=== PATIENT | male | born 1970 | race Caucasian/White ===

== ENCOUNTER 2024-04-16 14:12 | Emergency (ER) | payer BC, SELFPAY ==
[2024-04-16] VITALS (8 sets, daily range): BP systolic 119–142; BP diastolic 62–86; PULSE 70–76; BMI 32.9
[2024-04-16 14:42] LABS: % Basophils 0.5 % (0-2); % Immature Granulocytes 0.6 % (0-0.5); % Lymphocytes 14.4 % (20.5-51.1); % Monocytes 5.2 % (1.7-9.3); % Neutrophils 78.3 % (42.2-75.2); Absolute Eosinophils 0.1 10^3/uL (0-0.7); Absolute Immature Granulocytes 0.1 10^3/uL (0-0.05); Absolute Lymphocytes 1.2 10^3/uL (1.2-3.4); Absolute Monocytes 0.4 10^3/uL (0.1-0.6); Absolute Neutrophils 6.5 10^3/uL (1.4-6.5); Hemoglobin 13.8 g/dL (13.0-18.0); Mean Corp Hgb Conc. 34.5 g/dL (33.0-37.0); Mean Corpuscular Hgb 30.3 pg (27.0-31.0); Mean Corpuscular Volume 87.7 fL (80.0-94.0); Mean Platelet Volume 9.7 fL (7.4-10.4); Nucleated Red Blood Cells % 0 % (-); Platelet Count 148 10^3/uL (130-400); Red Blood Cell Count 4.56 10^6/uL (4.70-6.10); White Blood Cell Count 8.3 10^3/uL (4.8-10.8)
[2024-04-16 14:55] LABS: ALT (SGPT) 19 U/L (0-50); AST (SGOT) 22 U/L (17-59); Albumin 4.1 g/dl (3.5-5.0); Alkaline Phosphatase 60 U/L (38-126); Blood Urea Nitrogen 21 mg/dl (9-20); Calcium 8.8 mg/dl (8.4-10.2); Carbon Dioxide 25 mmol/L (22-30); Chloride 102 mmol/L (98-107); Glucose 170 mg/dl (70-99); Potassium 4.5 mmol/L (3.5-5.1); Sodium 134 mmol/L (135-145); Total Bilirubin 0.4 mg/dl (0.2-1.3); Total Protein 6.2 g/dl (6.3-8.2); eGFR > 60.00
[2024-04-16 15:07] LABS: Troponin I < 0.012 ng/ml
--- NOTE | 2024-04-16 16:51 | EDRN ---
Pt states he came in because he became very dizzy and shaking and sweaty (also pale) while helping his daughter in her home. BP was very high when checked at that time. Pt states dickson 4 hours ago and it lasted 1 hour. Pt states has never had anything
like that before. Now pt states he was dizzy in waiting area and still just not 'feeling right.' Pt just recovered Influenza A about a week ago.
--- NOTE | 2024-04-16 17:05 | EDRN ---
During orthostatic VS pt only had dizziness on lying flat, no symptoms on sitting or standing.
--- NOTE | 2024-04-16 17:32 | EDRN ---
Pt just returned from [facility] to stretcher at this time.
--- NOTE | 2024-04-16 17:50 | EDRN ---
Dr. Nogueira in to see pt at this time.
--- NOTE | 2024-04-16 18:10 | ED.GENMED ---
History of Present Illness
General
Chief Complaint: Dizziness
Time Seen by Provider: 04/16/24 17:15
History of Present Illness
History of Present Illness:
54-year-old male without significant past medical history presenting to the emergency department for an episode of dizziness. Patient reports that he was working on his daughter's house this afternoon around noon. He was going up and down the
ladder and underneath the crawlspace. He suddenly became very dizzy and lightheaded and felt like he was going to pass out. Notes his dizziness was described as room spinning. Symptoms lasted about an hour. He still does not feel himself,
however symptoms have overall improved. Denies associated chest pain or difficulty breathing. Denies ever having the symptoms in the past. Does note that he did not drink any water this morning and drank a double espresso followed by coffee.
Denies abdominal pain or GI symptoms. Denies focal weakness or sensory deficits to his extremities. Denies additional acute medical complaints
Past History
Past History
ED Past Medical History: None
ED Past Surgical History: None
Social History
Tobacco: Non-smoker
Alcohol: Occasional
Drug: None
Personal:
Living: with family
Employment: Employed
Phy Exam
Physical Exam
Physical Exam:
General: Well-appearing, no clinical signs of dehydration, nontoxic and in no acute distress
HEENT: protecting airway, pupils equal and reactive, extraocular movements intact
Neck: appears supple
CV: Normal heart rate, regular rhythm, no evidence of cyanosis
Resp: No accessory muscle use, no increased work of breathing, lungs clear to auscultation bilaterally
Abd: Soft and non-distended, no tenderness to palpation
Extremities: No deformities, no swelling, no erythema, pulses and sensation intact
Neuro: alert, no focal neurologic deficit
: deferred
Rectal: deferred
Psych: Normal affect
Skin: Intact
Course
Orders/Labs/Results
Orders:
Orders
04/16/24 14:12
Electrocardiogram (*1) Urgent
Reason for Study: Vertigo / Dizzy
EKG- Treatment ONCE
04/16/24 14:30
Complete Blood Count/With Diff Urgent
Comprehensive Metabolic Panel Urgent
Troponin I Urgent
04/16/24 17:51
0.9% Sodium Chloride 1000 ml [Nss] 1,000 ml IV BOLUS
04/16/24 17:52
CT Head W/o Iv Contrast Urgent
Comment:
Reason For Exam: dizziness
Abnormal Lab Results
04/16/24
14:30
RBC 4.56 L 10^6/uL
(4.70-6.10)
Abs Immat Gran (auto) 0.1 H 10^3/uL
(0-0.05)
Immature Gran % 0.6 H %
(0-0.5)
Neutrophils % 78.3 H %
(42.2-75.2)
Lymphocytes % 14.4 L %
(20.5-51.1)
Sodium 134 L mmol/L
(135-145)
BUN 21 H mg/dl
(9-20)
Glucose 170 H mg/dl
(70-99)
Total Protein 6.2 L g/dl
(6.3-8.2)
04/16/24 14:30
04/16/24 14:30
Vital Signs
Initial and Last Documented VS:
Initial Vital Signs
Temp Pulse Resp BP Pulse Ox
98.1 F 69 18 142/86 100
04/16/24 14:19 04/16/24 14:19 04/16/24 14:19 04/16/24 14:19 04/16/24 14:19
Last Documented Vital Signs
Temp Pulse Resp BP Pulse Ox
98.4 F 77 18 123/66 98
04/16/24 19:24 04/16/24 19:24 04/16/24 19:24 04/16/24 19:24 04/16/24 19:24
MDM/Problems Addressed
MDM/Problems Addressed:
54-year-old male presenting to the emergency department with episode of dizziness and lightheadedness. Vital signs on arrival are normal.
On exam patient is resting comfortably, no acute distress or discomfort. Benign cardiac and pulmonary exam. No focal neurologic deficits on exam. Symptom presentation appears most consistent with likely vasovagal quality of symptoms. Patient
notes that he did not drink very much water this morning, had a lot of caffeine and was frequently changing positions, doing manual labor. Suspect component of volume depletion. EKG obtained on arrival, nonischemic, no sign of arrhythmia. Patient
again without focal neurologic deficits without strong suspicion for any central neurologic process. Given duration of symptoms, will screen with CT brain imaging. Orthostatics obtained, within normal limits. Vertiginous component is also a
consideration, notes that it is worse when he is laying down. Screening laboratory analysis obtained, normal electrolyte panel and blood counts. For therapeutics will administer IV fluids and reassess.
20:00 - On reassessment patient remains stable. CT brain is negative. Continue to suspect vasovagal episode. Notes improvement after IV fluids. Feel stable for discharge with continued outpatient follow-up and supportive therapy. Advised
appropriate hydration. Return precautions discussed and patient verbalized understanding
*EKG
Interpreted by ED Provider?: Yes
EKG Intrepretation Date: 04/16/24
EKG Intrepretation Time: 18:12
Interpretation: normal
Comparison EKG: no comparison EKG present
Heart Rate: 63
Rate: normal
Rhythm: sinus
[place]: normal axis
Interval: normal interval
QRS Pattern: normal QRS
Ischemia: no ischemia
*Critical Care Note
Total Time (30-74mins, 75-104mins- exclusive of procedures): Not Applicable
ED Attending Note
-
Portions of this chart may have been created with voice recognition software.� Occasional wrong word or��sound alike� substitutions may have occurred due to the inherent limitations of voice recognition software.
Discharge Plan
Departure
Referrals:
Bob Hedrick DO [Family Provider] -
Interventions
Interventions:
*Risk Screen - Suicide Last Done: 04/16/24 14:19
*General Assessment Last Done: 04/16/24 14:19
*Neglect/Abuse Screening Last Done: 04/16/24 14:19
ED- Fall Risk Assessment Last Done: 04/16/24 17:00
*ED COVID-19 Vaccine History Last Done: 04/16/24 16:56
ED- Neurological Assessment Last Done: 04/16/24 19:15
ED- Cardiac Assessment Last Done: 04/16/24 19:15
ED Swallowing Screen Last Done: 04/16/24 17:10
Discharge Date and Time
Print Language: [place]
[2024-04-16] MEDS: NSS 1000 IV (18:16)
== END 2024-04-16 20:20 | disposition home or self-care (01) ==
LOC: EMR 14:12
PROVIDERS: Emergency Medicine; EMERGENCY PHYSICIAN Student in an Organized Health Care Education/Training Program; FAMILY PHYSICIAN Family Medicine
DX: R42 Dizziness and giddiness (principal); Z91.048 Other nonmedicinal substance allergy status
CPT/HCPCS: 99284; 96360; 96361; 70450; 80053; 84484; 85025; 93005